=== PATIENT | female | born 1960 | race African-American/Black ===

== ENCOUNTER 2017-05-16 11:04 | Observation (INO) | payer OTHER ==
[2017-05-16 11:32] VITALS: BMI 25.5
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
[2017-05-16 13:41] LABS: BASOPHIL 0.3 % (0-2.0); EOSINOPHIL 0.8 % (0-4.5); MCH 25.1 pg (25.7-33.7); MCHC 33.2 g/dl (32.0-36.0); MEAN CELL VOLUME 75.8 fl (80-96); MEAN PLT VOLUME 8.1 fl (7.5-11.1); NEUTROPHILS 80.3 % (42.8-82.8); PLATELET COUNT 216 K/MM3 (134-434); RDW 14.1 % (11.6-15.6); WHITE BLOOD COUNT 9.3 K/mm3 (4.0-10.0)
[2017-05-16 14:11] LABS: ALBUMIN 3.2 g/dl (3.4-5.0); ANION GAP 10 (8-16); CALCIUM 8.9 mg/dL (8.5-10.1); CO2 24 mmol/L (21-32); CREATININE 1.8 mg/dL (0.55-1.02); GLUCOSE,RANDOM 95 mg/dL (74-106); MAGNESIUM 2.6 mg/dL (1.8-2.4); SGOT/AST 34 U/L (15-37); TOT PROT 7.2 g/dl (6.4-8.2)
[2017-05-16 14:14] LABS: ALK PHOS 102 U/L (45-117); SGPT/ALT 22 U/L (12-78)
[2017-05-16 14:15] LABS: TROPONIN I < 0.02 ng/ml (0.00-0.05)
[2017-05-16 14:36] LABS: PLATELET ESTIMATE ADEQUATE (NORMAL)
--- NOTE | 2017-05-16 14:36 | EKG ---
Test Reason : Blood Pressure : / mmHG Vent. Rate : 075 BPM Atrial Rate : 075 BPM P-R Int : 154 ms QRS Dur : 082 ms QT Int : 360 ms P-R-T Axes : 064 050 043 degrees QTc Int : 402 ms NORMAL SINUS RHYTHM MINIMAL VOLTAGE CRITERIA FOR LVH, MAY BE NORMAL VARIANT BORDERLINE ECG WHEN COMPARED WITH ECG OF 22-SEP-2015 02:28, NO SIGNIFICANT CHANGE WAS FOUND Confirmed by SOFIYA CAMEJO MD ([id number]) on 05/16/2017 2:36:13 PM Referred By: Confirmed By:SOFIYA CAMEJO MD
[2017-05-16] MEDS ORDERED: SODIUM CHLORIDE 0.9% 500 ML INFUS.BAG IV ONE (15:32)
[2017-05-16 16:12] LABS: URINE APPEARANCE TURBID; URINE BILIRUBIN NEGATIVE (NEGATIVE); URINE BLOOD 1+ (NEGATIVE); URINE COLOR AMBER; URINE GLUCOSE (UA) NEGATIVE (NEGATIVE); URINE KETONE NEGATIVE (NEGATIVE); URINE NITRITE POSITIVE (NEGATIVE); URINE UROBILINOGEN 4.0 E.U/dl mg/dL (0.2-1.0)
[2017-05-16 16:14] LABS: URINE LEUK ESTERASE 3+ (NEGATIVE); URINE PROTEIN 2+ (NEGATIVE)
[2017-05-16 16:17] LABS: URINE BACTERIA MANY /hpf (NONE SEEN); URINE RBC 2 /hpf (0-3); URINE WBC 1376 /hpf (3-5)
[2017-05-16 16:27] LABS: URINE MARIJUANA THC NEGATIVE ng/ml (CUTOFF=50)
[2017-05-16] MEDS ORDERED: SODIUM CHLORIDE 1,000 ML IV STA (18:41)
--- NOTE | 2017-05-16 19:33 | PN ---
Teaching Attending Note Name of Resident: Avni Samuels ATTENDING PHYSICIAN STATEMENT I saw and evaluated the patient. I reviewed the resident's note and discussed the case with the resident. I agree with the resident's findings and plan as documented. SUBJECTIVE: CC: N/V/D/Abd pain HPI : for 6 days , has been having abd pain, N/V /Diarrhea ( watery , non bloody ). diarrhea stopped 2 days ago. poor po tolerance . did not take meds except for methadone. denies active drug abuse ( although U tox positive for cocaine ) . she wast at methadone clinic today and had near syncopal episode. reprots fever of 101 at home. no sick contact OBJECTIVE: NAD , AAOx3 . drinking orange juice HEENT: no facial droop. dry MM. oropharynx with no erythema or exudate . no LAP in neck . CV: RRR. Lungs: CTAB. Abd: soft, distended, TTP all over especially in upper part. tympanic abd . EXt: no edema Neuro : EOMI, no facial droop, round reactive pupils, nl facial sensation. strength 5/5 in upper ext proximally and distally. LE strength 3/5 at hip flexion , 5/5 at knee flexion and extension and dorsiflexion and plantar flexion . 1+knee jerk and biceps b/l ASSESSMENT AND PLAN: 56 y/o lady with h/o Asthma, polysubstance abuse, mood disorder and seizure DO , who presented with N/V/D 1- N/V/D : could be due to viral gastroenteritis, Flu , UTI. with abd distention need to r/o ileus , or partial SBO. - check KUB - treat UTI - check Flu swab - check Stool cx and c diff - IVF . - zofran - full liquids - check Lipase 2- UTI : - start ceftriaxone - follwo cx 3- SINTIA: likely prerenal. - IVF 4- near syncope : likely orthostatic hypotension . - check orthostatic VS - IVF - EKG reviewed. 5- H/o Seizure , will confirm meds and place on her meds 6- h/o polysubstance abuse : cont methadone. will confirm dose in am 7- DVT px : heparin SQ
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
[2017-05-16] MEDS ORDERED: ONDANSETRON 4 MG/2 ML VIAL IVPB PRN (20:13)
[2017-05-16] MEDS ORDERED: GABAPENTIN 300 MG CAPSULE (FP) PO SCH (20:15)
[2017-05-16] MEDS ORDERED: GABAPENTIN 100 MG CAPSULE (FP) PO PRN (20:39)
[2017-05-16] MEDS ORDERED: DEXTROSE 5%-WATER - 50 ML IVPB ONE (21:05)
[2017-05-16] MEDS ORDERED: cefTRIAXone SODIUM 1 GM VIAL ONE (21:05)
[2017-05-16] MEDS: CEFTRIAXONE 1 GM in DEXTROSE 5%-WATER - 50 ML IVPB SCH (21:30)
[2017-05-16] MEDS: LITHIUM CARBONATE 300 MG CAPSULE (FP) PO SCH (21:42)
[2017-05-16] MEDS: HEPARIN NA (PORCINE) 5,000 UNITS/ML 1ML VIAL SQ SCH (21:42)
[2017-05-16] MEDS: QUEtiapine FUMARATE 200 MG TABLET PO SCH (21:43)
[2017-05-16] MEDS: PHENYTOIN NA EXTENDED 100 MG CAPSULE (FP) PO SCH (21:43)
[2017-05-16] MEDS: PHENobarbital 30 MG TABLET PO SCH (21:43)
[2017-05-16] MEDS: SODIUM CHLORIDE 1,000 ML IV SCH (21:44)
[2017-05-16] MEDS ORDERED: HEPARIN NA (PORCINE) 5,000 UNITS/ML 1ML VIAL SQ SCH (22:00)
[2017-05-17] MEDS: PHENYTOIN NA EXTENDED 100 MG CAPSULE (FP) PO SCH ×3 (06:24→22:06)
[2017-05-17] MEDS: LITHIUM CARBONATE 300 MG CAPSULE (FP) PO SCH ×3 (06:24→22:07)
[2017-05-17] MEDS: HEPARIN NA (PORCINE) 5,000 UNITS/ML 1ML VIAL SQ SCH ×3 (06:24→22:05)
[2017-05-17] MEDS: QUEtiapine FUMARATE 200 MG TABLET PO SCH ×2 (06:25→22:06)
[2017-05-17] MEDS: PHENobarbital 30 MG TABLET PO SCH ×3 (06:25→22:05)
[2017-05-17 07:26] LABS: BASOPHIL 0.4 % (0-2.0); EOSINOPHIL 1.1 % (0-4.5); MCH 25.2 pg (25.7-33.7); MEAN CELL VOLUME 76.6 fl (80-96); MEAN PLT VOLUME 8.4 fl (7.5-11.1); NEUTROPHILS 70.3 % (42.8-82.8); PLATELET COUNT 241 K/MM3 (134-434); WHITE BLOOD COUNT 8.3 K/mm3 (4.0-10.0)
[2017-05-17 08:12] LABS: ALBUMIN 3.1 g/dl (3.4-5.0); ALK PHOS 99 U/L (45-117); ANION GAP 10 (8-16); CALCIUM 9.1 mg/dL (8.5-10.1); CO2 23 mmol/L (21-32); CREATININE 1.4 mg/dL (0.55-1.02); GLUCOSE,RANDOM 100 mg/dL (74-106); MAGNESIUM 2.5 mg/dL (1.8-2.4); SGOT/AST 39 U/L (15-37); SGPT/ALT 23 U/L (12-78); TOT PROT 7.1 g/dl (6.4-8.2)
[2017-05-17] MEDS ORDERED: cefTRIAXone SODIUM 1 GM VIAL ONE (08:42)
[2017-05-17] MEDS ORDERED: DEXTROSE 5%-WATER - 50 ML IVPB ONE (08:43)
[2017-05-17] MEDS ORDERED: METHADONE HCL 40 MG DISPERSABLE TABLET ONE (09:34)
[2017-05-17] MEDS ORDERED: METHADONE HCL 10 MG TABLET ONE (09:34)
[2017-05-17] MEDS ORDERED: METHADONE HCL 10 MG TABLET PO SCH (10:00)
[2017-05-17] MEDS: METHADONE 120 MG, METHADONE 10 MG PO SCH (10:25)
[2017-05-17] MEDS: CEFTRIAXONE 1 GM in DEXTROSE 5%-WATER - 50 ML IVPB SCH (10:25)
[2017-05-17] MEDS ORDERED: SODIUM PHOSPHATE - 30 MM in SODIUM CHLORIDE 250 ML IVPB ONE (12:00)
[2017-05-17] MEDS ORDERED: PT OWN MED DRAWER 7, Y5N ONE ×2 (14:10→21:43)
[2017-05-17] MEDS: NAPH,MB-DB/K PH,MBDB POWDER PACKET PO SCH ×2 (14:29→22:07)
--- NOTE | 2017-05-17 18:38 | PN ---
Teaching Attending Note Name of Resident: Avni Samuels ATTENDING PHYSICIAN STATEMENT I saw and evaluated the patient. I reviewed the resident's note and discussed the case with the resident. I agree with the resident's findings and plan as documented. SUBJECTIVE: no fever or chills . feels better OBJECTIVE: NAD , AAOx3 . HEENT: no facial droop. MMM CV: RRR. Lungs: CTAB. Abd: soft, Not distended today . no TTP EXt: no edema ASSESSMENT AND PLAN: 56 y/o lady with h/o Asthma, polysubstance abuse, mood disorder and seizure DO , who presented with N/V/D 1- N/V/D : could be due to viral gastroenteritis, or due to the UTI ABd distention has resolved on exam, tolerated her diet - treat UTI - Flu swab neg - c diff if diarrhea recurs - IVF . - zofran - upgrade to regular diet 2- UTI : - cont ceftriaxone - follow Ucx 3- SINTIA: likely prerenal. improved - cont IVF 4- Near syncope : likely orthostatic hypotension . - orthostatic VS this am after IVF with no drop - IVF 5- H/o Seizure , COnt meds 6- h/o polysubstance abuse : cont methadone. 7- DVT px : heparin SQ
--- NOTE | 2017-05-17 18:47 | PN ---
Physical Exam: SUBJECTIVE: Patient seen and examined. Says she feels just as bad as yesterday but she denies nausea, vomiting, and diarrhea today. She also says her abdominal pain subsided. OBJECTIVE: Vital Signs Period Temp Pulse Resp BP Sys/Galan Pulse Ox Last 24 Hr 97.7 F-98.6 F 78-96 18-19 98-117/60-79 96-98 GENERAL: A/O x 3, NAD HEAD: Normal with no signs of trauma. EYES: Pupils equal, round and reactive to light, extraocular movements intact, sclera anicteric, conjunctiva clear. No lid lag. EARS, NOSE, THROAT: oropharynx clear without exudates. Dry mucous membranes NECK: supple without lymphadenopathy, JVD, or masses. LUNGS: Wheezing B/L bases , and no crackles. No accessory muscle use. HEART: Regular rate and rhythm, normal S1 and S2 without murmur, rub or gallop. ABDOMEN: soft, distended (much less than yesterday), nontender MUSCULOSKELETAL: Normal range of motion at all joints. No bony deformities or tenderness. No CVA tenderness. UPPER EXTREMITIES: 2+ pulses, warm, well-perfused. No cyanosis. No clubbing. No peripheral edema. LOWER EXTREMITIES: 2+ pulses, warm, well-perfused. No calf tenderness. No peripheral edema. PSYCHIATRIC: Cooperative. Good eye contact. Appropriate mood and affect. SKIN: Warm, dry, normal turgor, no rashes or lesions noted, normal capillary refill. Laboratory Results - last 24 hr 05/16/17 05/17/17 05/17/17 21:14 05:35 05:35 WBC 8.3 RBC 3.92 Hgb 9.9 L Hct 30.0 L MCV 76.6 L MCH 25.2 L MCHC 33.0 RDW 14.0 Plt Count 241 MPV 8.4 Neutrophils % 70.3 Lymphocytes % 14.0 D Monocytes % 14.2 H Eosinophils % 1.1 Basophils % 0.4 Sodium 139 Potassium 4.4 Chloride 106 Carbon Dioxide 23 Anion Gap 10 BUN 26 H D Creatinine 1.4 H D Creat Clearance w eGFR 38.76 Random Glucose 100 Calcium 9.1 Phosphorus 2.0 L Magnesium 2.5 H Total Bilirubin 1.0 AST 39 H ALT 23 Alkaline Phosphatase 99 Total Protein 7.1 Albumin 3.1 L Lipase 239 144 05/17/17 05:35 WBC RBC Hgb Hct MCV MCH MCHC RDW Plt Count MPV Neutrophils % Lymphocytes % Monocytes % Eosinophils % Basophils % Sodium Potassium Chloride Carbon Dioxide Anion Gap BUN Creatinine Creat Clearance w eGFR Random Glucose Calcium Phosphorus Magnesium Total Bilirubin AST ALT Alkaline Phosphatase Total Protein Albumin Lipase Cancelled Active Medications Generic Name Dose Route Start Last Admin Trade Name Freq PRN Reason Stop Dose Admin Gabapentin 100 mg 05/16/17 20:39 05/16/17 21:43 Neurontin - PO 100 mg Q8H PRN Administration Heparin Sodium (Porcine) 5,000 unit 05/16/17 22:00 05/17/17 14:29 Heparin - SQ Not Given TID TRAVIS Ceftriaxone Sodium 1 gm/ 50 mls @ 100 mls/hr 05/16/17 20:15 05/17/17 10:25 Dextrose IVPB 100 mls/hr DAILY TRAVIS Administration Sodium Chloride 1,000 mls @ 100 mls/hr 05/16/17 20:30 05/16/17 21:44 Normal Saline - IV 100 mls/hr ASDIR TRAVIS Administration [place] Carbonate 300 mg 05/16/17 22:00 05/17/17 14:28 Eskalith - PO 300 mg TID TRAVIS Administration Methadone HCl 120 mg/ 130 mg 05/17/17 10:00 05/17/17 10:25 Methadone HCl 10 mg PO 130 mg DAILY TRAVIS Administration Ondansetron HCl 4 mg 05/16/17 20:13 Zofran Injection IVPB Q6H PRN NAUSEA Phenobarbital 30 mg 05/16/17 22:00 05/17/17 14:28 Phenobarbital - PO 30 mg TID TRAVIS Administration Phenytoin Sodium 100 mg 05/16/17 22:00 05/17/17 14:28 Dilantin - PO 100 mg TID TRAVIS Administration Potassium Phos/Sodium Phos 1 packet 05/17/17 14:00 05/17/17 14:29 Phos-Nak Packet - PO 1 packet TID TRAVIS Administration Quetiapine Fumarate 200 mg 05/16/17 22:00 05/16/17 21:43 Seroquel - PO 200 mg HS TRAVIS Administration Quetiapine Fumarate 200 mg 05/17/17 07:00 05/17/17 06:25 Seroquel - PO 200 mg AM TRAVIS Administration ASSESSMENT/PLAN: Patient is a 56 y/o female with a past medical history of seizure disorder, mood disorder, COPD, and polysubstance abuse was admitted because of nausea, vomiting, diarrhea and abdominal pain. #Nausea, vomiting, and watery diarrhea and abdominal distention possibly due to Gastroenteritis vs. UTI -f/u urine cultures -continue IV antibiotics (day 2): Ceftriaxone -diarrhea and abdominal distention resolved -continue zofran -continue IV fluids NS 100cc/hour -Start regular diet #UTI -urine wbc 1300 -f/u urine cultures -continue ceftriaxone 1gm #SINTIA likely prerenal -improving, 1.4 creatitine (yesterday 1.8) -poor oral intake and dehydration -continue IV fluids NS 100cc/hour -will monitor #Near syncopal episode likely due dehydration -orthostatic vital signs WNL -EKG reviewed -continue IV fluids. #Hx of Seizures -continue phenobarbital 30mg TID -continue Dilantin 100mg TID #Hx of Polysubstance abuse -continue methadone 130mg #DVT PPX: Heparin SQ 5000U Visit type - Emergency Visit Emergency Visit: Yes ED Registration Date: 05/16/17 Care time: The patient presented to the Emergency Department on the above date and was hospitalized for further evaluation of their emergent condition. - New Patient This patient is new to me today: No - Critical Care Critical Care patient: No
[2017-05-17] MEDS: SODIUM CHLORIDE 1,000 ML IV SCH (22:06)
[2017-05-18] MEDS: PHENobarbital 30 MG TABLET PO SCH ×3 (05:46→21:19)
[2017-05-18] MEDS: HEPARIN NA (PORCINE) 5,000 UNITS/ML 1ML VIAL SQ SCH ×3 (05:46→21:20)
[2017-05-18] MEDS: NAPH,MB-DB/K PH,MBDB POWDER PACKET PO SCH ×4 (05:46→21:24)
[2017-05-18] MEDS: PHENYTOIN NA EXTENDED 100 MG CAPSULE (FP) PO SCH ×3 (05:47→21:20)
[2017-05-18] MEDS: LITHIUM CARBONATE 300 MG CAPSULE (FP) PO SCH ×3 (05:47→21:20)
[2017-05-18] MEDS: QUEtiapine FUMARATE 200 MG TABLET PO SCH ×2 (06:05→21:20)
[2017-05-18] MEDS ORDERED: METHADONE HCL 10 MG TABLET ONE (08:27)
[2017-05-18] MEDS ORDERED: METHADONE HCL 40 MG DISPERSABLE TABLET ONE (08:28)
[2017-05-18] MEDS ORDERED: DEXTROSE 5%-WATER - 50 ML IVPB ONE (08:28)
[2017-05-18] MEDS ORDERED: cefTRIAXone SODIUM 1 GM VIAL ONE (08:28)
[2017-05-18] MEDS: CEFTRIAXONE 1 GM in DEXTROSE 5%-WATER - 50 ML IVPB SCH (09:01)
[2017-05-18] MEDS: METHADONE 120 MG, METHADONE 10 MG PO SCH (09:02)
[2017-05-18 09:26] LABS: HIV 1 & 2 AB NEGATIVE; HIV 1 AGp24 NEGATIVE
[2017-05-18 10:08] LABS: MCH 25.8 pg (25.7-33.7); MCHC 33.3 g/dl (32.0-36.0); MEAN CELL VOLUME 77.4 fl (80-96); MEAN PLT VOLUME 8.3 fl (7.5-11.1); PLATELET COUNT 260 K/MM3 (134-434); RDW 14.2 % (11.6-15.6); WHITE BLOOD COUNT 6.9 K/mm3 (4.0-10.0)
[2017-05-18 10:31] LABS: ANION GAP 5 (8-16); CO2 24 mmol/L (21-32); CREATININE 1.1 mg/dL (0.55-1.02); GLUCOSE,RANDOM 117 mg/dL (74-106); MAGNESIUM 2.4 mg/dL (1.8-2.4)
[2017-05-18] MEDS ORDERED: SODIUM CHLORIDE 1,000 ML IV SCH (11:07)
--- NOTE | 2017-05-18 11:59 | PN ---
Teaching Attending Note Name of Resident: Francie Canela ATTENDING PHYSICIAN STATEMENT I saw and evaluated the patient. I reviewed the resident's note and discussed the case with the resident. I agree with the resident's findings and plan as documented. SUBJECTIVE: no fever ro chills, has no ABd pain , feels better . insomnia last night OBJECTIVE: NAD , AAOx3 . HEENT: no facial droop. MMM CV: RRR. Lungs: CTAB. Abd: soft, ND. no TTP EXt: no edema ASSESSMENT AND PLAN: 56 y/o lady with h/o Asthma, polysubstance abuse, mood disorder and seizure DO , who presented with N/V/D 1- N/V/D : could be due to viral gastroenteritis, or due to the UTI ABd distention has resolved on exam - COnt to treat UTI - C diff if diarrhea recurs -Cont but decrease IVF . - zofran - Regular diet today 2- UTI : - cont ceftriaxone - follow Ucx ( lactose fermenting G-) 3- SINTIA: likely prerenal. improved - cont IVF with decreasing the rate 4- Near syncope : likely orthostatic hypotension . - IVF 5- H/o Seizure , COnt meds 6- h/o polysubstance abuse : cont methadone. 7- DVT px : heparin SQ POssible dc tomorrow . Need PT eval .
[2017-05-18] MEDS ORDERED: PT OWN MED DRAWER 7, Y5N ONE ×3 (12:58→21:12)
[2017-05-19] MEDS: NAPH,MB-DB/K PH,MBDB POWDER PACKET PO SCH ×2 (06:17→13:23)
[2017-05-19] MEDS: HEPARIN NA (PORCINE) 5,000 UNITS/ML 1ML VIAL SQ SCH ×2 (06:37→13:23)
[2017-05-19] MEDS: LITHIUM CARBONATE 300 MG CAPSULE (FP) PO SCH ×2 (06:37→13:23)
[2017-05-19] MEDS: PHENobarbital 30 MG TABLET PO SCH ×2 (06:37→13:23)
[2017-05-19] MEDS: QUEtiapine FUMARATE 200 MG TABLET PO SCH (06:37)
[2017-05-19] MEDS: PHENYTOIN NA EXTENDED 100 MG CAPSULE (FP) PO SCH ×2 (06:37→13:23)
--- NOTE | 2017-05-19 07:05 | PN ---
Physical Exam: SUBJECTIVE: Patient seen and examined No new c/o OBJECTIVE: Vital Signs Period Temp Pulse Resp BP Sys/Galan Pulse Ox Last 24 Hr 97.5 F-99.8 F 61-93 18-20 94-120/51-78 96-96 GENERAL: The patient is awake, alert, and fully oriented, in no acute distress. HEAD: Normal with no signs of trauma. EYES: PERRL, extraocular movements intact, sclera anicteric, conjunctiva clear. No ptosis. ENT: Ears normal, nares patent, oropharynx clear without exudates, moist mucous membranes. NECK: Trachea midline, full range of motion, supple. LUNGS: Breath sounds equal, clear to auscultation bilaterally, no wheezes, no crackles, no accessory muscle use. HEART: Regular rate and rhythm, S1, S2 without murmur, rub or gallop. ABDOMEN: Soft, nontender, nondistended, normoactive bowel sounds, no guarding, no rebound, no hepatosplenomegaly, no masses. EXTREMITIES: 2+ pulses, warm, well-perfused, no edema. NEUROLOGICAL: Cranial nerves II through XII grossly intact. Normal speech, gait not observed. PSYCH: Normal mood, normal affect. SKIN: Warm, dry, normal turgor, no rashes or lesions noted Laboratory Results - last 24 hr 05/18/17 05/18/17 09:45 09:45 WBC 6.9 RBC 3.62 Hgb 9.3 L Hct 28.0 L MCV 77.4 L MCH 25.8 MCHC 33.3 RDW 14.2 Plt Count 260 MPV 8.3 Sodium 139 Potassium 4.4 Chloride 110 H Carbon Dioxide 24 Anion Gap 5 L BUN 15 D Creatinine 1.1 H D Random Glucose 117 H Calcium 9.0 Phosphorus 3.0 D Magnesium 2.4 Active Medications Generic Name Dose Route Start Last Admin Trade Name Freq PRN Reason Stop Dose Admin Gabapentin 100 mg 05/16/17 20:39 05/16/17 21:43 Neurontin - PO 100 mg Q8H PRN Administration Heparin Sodium (Porcine) 5,000 unit 05/16/17 22:00 05/19/17 06:37 Heparin - SQ 5,000 unit TID TRAVIS Administration Ceftriaxone Sodium 1 gm/ 50 mls @ 100 mls/hr 05/16/17 20:15 05/18/17 09:01 Dextrose IVPB 100 mls/hr DAILY TRAVIS Administration Sodium Chloride 1,000 mls @ 75 mls/hr 05/18/17 11:07 05/18/17 13:12 Normal Saline - IV 75 mls/hr ASDIR TRAVIS Administration [place] Carbonate 300 mg 05/16/17 22:00 05/19/17 06:37 Eskalith - PO 300 mg TID TRAVIS Administration Methadone HCl 120 mg/ 130 mg 05/17/17 10:00 05/18/17 09:02 Methadone HCl 10 mg PO 130 mg DAILY TRAVIS Administration Ondansetron HCl 4 mg 05/16/17 20:13 Zofran Injection IVPB Q6H PRN NAUSEA Phenobarbital 30 mg 05/16/17 22:00 05/19/17 06:37 Phenobarbital - PO 30 mg TID TRAVIS Administration Phenytoin Sodium 100 mg 05/16/17 22:00 05/19/17 06:37 Dilantin - PO 100 mg TID TRAVIS Administration Potassium Phos/Sodium Phos 1 packet 05/17/17 14:00 05/19/17 06:17 Phos-Nak Packet - PO Not Given TID TRAVIS Quetiapine Fumarate 200 mg 05/16/17 22:00 05/18/17 21:20 Seroquel - PO 200 mg HS TRAVIS Administration Quetiapine Fumarate 200 mg 05/17/17 07:00 05/19/17 06:37 Seroquel - PO 200 mg AM TRAVIS Administration ASSESSMENT/PLAN: Patient is a 56 y/o female with a past medical history of seizure disorder, mood disorder, COPD, and polysubstance abuse was admitted because of nausea, vomiting, diarrhea and abdominal pain. #Nausea, vomiting, and watery diarrhea secondary to UTI G-ve lactose fermenting organism --continue IV antibiotics - Ceftriaxone -diarrhea and abdominal distention resolved -continue zofran -continue IV fluids NS reduce to 75cc/hour -Start regular diet #UTI -urine wbc 1300 -G-ve lactose fermenting organism -continue ceftriaxone 1gm #SINTIA likely prerenal -improving, 1.1creatitine (yesterday 1.4) -poor oral intake and dehydration -continue IV fluids NS reduce to 75cc/hour -will monitor #Near syncopal episode likely due dehydration -orthostatic vital signs WNL -EKG reviewed -continue IV fluids. #Hx of Seizures -continue phenobarbital 30mg TID -continue Dilantin 100mg TID #Hx of Polysubstance abuse -continue methadone 130mg #PT evaluation Uses walker at home #Electrolyte imbalance Replete as needed #DVT PPX: Heparin SQ 5000U #Dispo For likely discharge Visit type - Emergency Visit Emergency Visit: Yes ED Registration Date: 05/16/17 Care time: The patient presented to the Emergency Department on the above date and was hospitalized for further evaluation of their emergent condition. - New Patient This patient is new to me today: Yes Date on this admission: 05/19/17 - Critical Care Critical Care patient: No - Discharge Referral Referred to [facility] No
--- NOTE | 2017-05-19 08:00 | DS ---
Physical Exam: SUBJECTIVE: Patient seen and examined OBJECTIVE: Vital Signs Period Temp Pulse Resp BP Sys/Galan Pulse Ox Last 24 Hr 97.5 F-99.8 F 61-93 18-20 94-120/51-78 96-96 PHYSICAL EXAM GENERAL: The patient is awake, alert, and fully oriented, in no acute distress. HEAD: Normal with no signs of trauma. EYES: PERRL, extraocular movements intact, sclera anicteric, conjunctiva clear. ENT: Ears normal, nares patent, oropharynx clear without exudates, moist mucous membranes. NECK: Trachea midline, full range of motion, supple. LUNGS: Breath sounds equal, clear to auscultation bilaterally, no wheezes, no crackles, no accessory muscle use. HEART: Regular rate and rhythm, S1, S2 without murmur, rub or gallop. ABDOMEN: Soft, nontender, nondistended, normoactive bowel sounds, no guarding, no rebound, no hepatosplenomegaly, no masses. EXTREMITIES: 2+ pulses, warm, well-perfused, no edema. NEUROLOGICAL: Cranial nerves II through XII grossly intact. Normal speech, gait not observed. PSYCH: Normal mood, normal affect. SKIN: Warm, dry, normal turgor, no rashes or lesions noted. LABS Laboratory Results - last 24 hr 05/18/17 05/18/17 09:45 09:45 WBC 6.9 RBC 3.62 Hgb 9.3 L Hct 28.0 L MCV 77.4 L MCH 25.8 MCHC 33.3 RDW 14.2 Plt Count 260 MPV 8.3 Sodium 139 Potassium 4.4 Chloride 110 H Carbon Dioxide 24 Anion Gap 5 L BUN 15 D Creatinine 1.1 H D Random Glucose 117 H Calcium 9.0 Phosphorus 3.0 D Magnesium 2.4 HOSPITAL COURSE: Date of Admission:05/16/17 Date of Discharge: 05/19/17 Discharge Summary Reason For Visit: DEHYDRATION Current Active Problems Syncope and collapse (Acute) Condition: Stable - Home Medications Comprehensive Discharge Medication List: Ambulatory Orders [place] Carbonate [Eskalith -] 300 mg PO TID 09/03/15 Albuterol Sulfate Inhaler - [Ventolin HFA Inhaler -] 2 inh IH Q4H PRN #1 inhaler 09/14/15 Tiotropium Mark [Spiriva Respimat] 4 gm IH DAILY #1 mist.inhal 09/14/15 Gabapentin [Neurontin -] 800 mg PO PRN 05/16/17 Methadone [Dolophine -] 130 mg PO DAILY 05/16/17 Phenobarbital - 30 mg PO TID 05/16/17 Phenytoin Na Extended [Dilantin -] 100 mg PO TID 05/16/17 Quetiapine Fumarate [Seroquel -] 200 mg PO AM 05/16/17 Quetiapine Fumarate [Seroquel -] 400 mg PO HS 05/16/17 - Discharge Referral Referred to [facility] No
[2017-05-19] MEDS ORDERED: METHADONE HCL 10 MG TABLET ONE (08:40)
[2017-05-19] MEDS ORDERED: METHADONE HCL 40 MG DISPERSABLE TABLET ONE (08:40)
[2017-05-19] MEDS ORDERED: cefTRIAXone SODIUM 1 GM VIAL ONE (08:40)
[2017-05-19] MEDS ORDERED: DEXTROSE 5%-WATER - 50 ML IVPB ONE (08:40)
[2017-05-19] MEDS: METHADONE 120 MG, METHADONE 10 MG PO SCH (09:01)
[2017-05-19] MEDS: CEFTRIAXONE 1 GM in DEXTROSE 5%-WATER - 50 ML IVPB SCH (09:20)
[2017-05-19] MEDS ORDERED: PT OWN MED DRAWER 7, Y5N ONE (13:22)
[2017-05-19 16:09] VITALS: BP 110/70; PULSE 73; TEMP 98.3
== END 2017-05-19 19:21 | disposition home or self-care (01) ==
LOC: JER 11:04 → UNDOADMOB 15:49 → INTOOBSV 15:49 → JERBED 15:49 → J4W 18:32 → OBSVTOIN 18:42 → INTOOBSV 18:42 → J4W 05-17 10:48 → JERBED 05-17 10:48 → UNDODISOB 05-19 19:21
PROVIDERS: ADMIT Internal Medicine; ATTEND Nurse Practitioner Acute Care
PROC: 3E0337Z Introduction of Electrolytic and Water Balance Substance into Peripheral Vein, Percutaneous Approach (ICD-10-PCS; principal; 2017-05-17)
DX: E86.0 Dehydration (principal); R55 Syncope and collapse; G40.909 Epilepsy, unspecified, not intractable, without status epilepticus; F11.20 Opioid dependence, uncomplicated; F19.10 Other psychoactive substance abuse, uncomplicated; F39 Unspecified mood [affective] disorder; J44.9 Chronic obstructive pulmonary disease, unspecified; Z87.891 Personal history of nicotine dependence; Z88.6 Allergy status to analgesic agent; N39.0 Urinary tract infection, site not specified; R11.2 Nausea with vomiting, unspecified; N17.9 Acute kidney failure, unspecified; R19.7 Diarrhea, unspecified
CPT/HCPCS: 36415; 71020-TC; 74000-TC; 80048; 80053; 80185; 80307; 81003; 81015; 83605; 83690; 83735; 83880; 84100; 84484; 85025; 85027; 87086; 87186; 87389; 87804; 93005; 93010; 97116-GP; 99282-25; G0378; J1644

== ENCOUNTER 2021-07-18 15:48 | Inpatient (IN) | payer OTHER ==
[2021-07-18] MEDS: SODIUM CHLORIDE 1,000 ML IV SCH (17:00)
[2021-07-18 17:02] LABS: BASO % 0.5 % (0-2.0); EOS % 1.3 % (0-4.5); HEMOGLOBIN 10.4 GM/dL (10.7-15.3); LYMPH % 39.6 % (8-40); MCH 27.2 pg (25.7-33.7); MCHC 33.4 g/dl (32.0-36.0); MEAN CELL VOLUME 81.4 fl (80-96); MEAN PLT VOLUME 7.4 fl (7.5-11.1); MONO % 8.3 % (3.8-10.2); NEUT % 50.3 % (42.8-82.8); PLATELET COUNT 232 10^3/uL (134-434); RBC 3.81 M/mm3 (3.60-5.2); RDW 14.4 % (11.6-15.6)
[2021-07-18 17:09] LABS: INR 1.08 (0.83-1.09); PROTHROMBIN TIME (PATIENT) 12.1 SEC (9.7-13.0)
[2021-07-18 17:11] LABS: ACTIVATED PTT 27.7 SECONDS (25.2-36.5)
[2021-07-18 18:16] LABS: ALBUMIN 3.8 g/dl (3.4-5.0); ALK PHOS 81 U/L (45-117); ANION GAP 3 MMOL/L (8-16); BILIRUBIN,TOTAL 0.6 mg/dL (0.2-1); BLOOD UREA NITROGEN 15.6 mg/dL (7-18); CALCIUM 9.2 mg/dL (8.5-10.1); CHLORIDE 109 mmol/L (98-107); CHOLESTEROL 167 mg/dL (50-200); CO2 29 mmol/L (21-32); CREATININE 1.7 mg/dL (0.55-1.3); GLUCOSE,RANDOM 90 mg/dL (74-106); HDL CHOLESTEROL 66 mg/dL (40-60); LDL CHOLESTEROL (ONLY SJRH) 86 mg/dL (5-100); SGOT/AST 17 U/L (15-37); SGPT/ALT 12 U/L (13-61); SODIUM 140 mmol/L (136-145); TOT PROT 7.2 g/dl (6.4-8.2); TRIGLYCERIDES 67 mg/dL (0-150)
[2021-07-18 21:32] LABS: EPI CELLS 10 /uL (0-25.1); HYALINE CASTS 3 /uL (0-3.1); PH,URINE 8.5 (5.0-8.0); URINE APPEARANCE CLOUDY; URINE BACTERIA 38 /uL (0-1359); URINE BILIRUBIN NEGATIVE (NEGATIVE); URINE COLOR YELLOW; URINE GLUCOSE (UA) NEGATIVE (NEGATIVE); URINE KETONE NEGATIVE (NEGATIVE); URINE LEUK ESTERASE 2+ (NEGATIVE); URINE NITRITE NEGATIVE (NEGATIVE); URINE PROTEIN 1+ (NEGATIVE); URINE RBC 172 /uL (0-23.9); URINE WBC 741 /uL (0-25.8)
[2021-07-18] MEDS ORDERED: ASPIRIN COATED 81 MG TABLET.EC PO ONE (21:57)
[2021-07-18 22:08] LABS: COCAINE, UR POSITIVE (NEGATIVE); METHADONE, UR POSITIVE (NEGATIVE); OPIATES, URI POSITIVE (NEGATIVE); PHENCYCLIDINE,URINE NEGATIVE (NEGATIVE); URINE AMPHETAMINES NEGATIVE (NEGATIVE); URINE BARBITURATES NEGATIVE (NEGATIVE); URINE BENZODIAZEPINES POSITIVE (NEGATIVE)
[2021-07-18] MEDS ORDERED: GABAPENTIN 300 MG CAPSULE PO PRN (22:12)
[2021-07-18] MEDS ORDERED: TIOTROPIUM BROMIDE 2.5 MCG (SPIRIVA) RESPIMAT INHALER IH PRN (22:12)
[2021-07-18] MEDS ORDERED: ALBUTEROL SO4 HFA INHALER IH PRN (22:12)
[2021-07-18] MEDS: PHENYTOIN NA EXTENDED 100 MG CAPSULE (FP) PO SCH (22:42)
[2021-07-18] MEDS: PHENobarbital 30 MG TABLET PO SCH (22:44)
[2021-07-18] MEDS: LITHIUM CARBONATE 300 MG CAPSULE PO SCH (22:44)
[2021-07-18] MEDS: HEPARIN NA (PORCINE) 5,000 UNITS/ML 1ML VIAL SQ SCH (22:45)
[2021-07-18 23:34] VITALS: BMI 24.6
[2021-07-19] MEDS: PHENobarbital 30 MG TABLET PO SCH ×3 (05:54→21:14)
[2021-07-19] MEDS: HEPARIN NA (PORCINE) 5,000 UNITS/ML 1ML VIAL SQ SCH ×3 (05:54→21:14)
[2021-07-19] MEDS: PHENYTOIN NA EXTENDED 100 MG CAPSULE (FP) PO SCH ×3 (05:54→21:13)
[2021-07-19] MEDS: QUEtiapine FUMARATE 50 MG TABLET PO SCH (06:13)
[2021-07-19] MEDS ORDERED: cefTRIAXone SODIUM 1 GM VIAL ONE (09:43)
[2021-07-19] MEDS ORDERED: DEXTROSE 5%-WATER - 50 ML IVPB ONE (09:44)
[2021-07-19] MEDS ORDERED: methaDONE HCL 10 MG TABLET PO SCH (10:00)
[2021-07-19] MEDS ORDERED: methaDONE HCL 10 MG TABLET ONE (11:10)
[2021-07-19] MEDS ORDERED: methaDONE HCL 40 MG DISPERSABLE TABLET ONE (11:10)
[2021-07-19] MEDS: TIOTROPIUM BROMIDE 2.5 MCG (SPIRIVA) RESPIMAT INHALER IH SCH (11:14)
[2021-07-19] MEDS: ASPIRIN COATED 81 MG TABLET.EC PO SCH (11:14)
[2021-07-19] MEDS: CEFTRIAXONE 1 GM in DEXTROSE 5%-WATER - 50 ML IVPB SCH (11:15)
[2021-07-19] MEDS: SODIUM CHLORIDE 1,000 ML IV SCH (18:08)
[2021-07-19] MEDS ORDERED: PT OWN MED DRAWER 7, Y5N ONE (21:10)
[2021-07-19] MEDS: ATORVASTATIN CA 80 MG TABLET (FP) PO SCH (21:14)
[2021-07-20] MEDS: HEPARIN NA (PORCINE) 5,000 UNITS/ML 1ML VIAL SQ SCH ×3 (05:16→22:51)
[2021-07-20] MEDS: LITHIUM CARBONATE 300 MG CAPSULE PO SCH ×3 (05:16→22:50)
[2021-07-20] MEDS: SODIUM CHLORIDE 1,000 ML IV SCH ×2 (05:30→22:49)
[2021-07-20] MEDS: QUEtiapine FUMARATE 50 MG TABLET PO SCH (06:19)
[2021-07-20 08:36] LABS: HEMATOCRIT 29.3 % (32.4-45.2); HEMOGLOBIN 9.8 GM/dL (10.7-15.3); MCH 27.3 pg (25.7-33.7); MCHC 33.3 g/dl (32.0-36.0); MEAN CELL VOLUME 81.9 fl (80-96); MEAN PLT VOLUME 7.9 fl (7.5-11.1); PLATELET COUNT 211 10^3/uL (134-434); RBC 3.58 M/mm3 (3.60-5.2); RDW 14.4 % (11.6-15.6); WHITE BLOOD COUNT 5.1 K/mm3 (4.0-10.0)
[2021-07-20] MEDS ORDERED: methaDONE HCL 10 MG TABLET ONE (09:18)
[2021-07-20] MEDS ORDERED: methaDONE HCL 40 MG DISPERSABLE TABLET ONE (09:18)
[2021-07-20] MEDS ORDERED: DEXTROSE 5%-WATER - 50 ML IVPB ONE (09:19)
[2021-07-20] MEDS ORDERED: cefTRIAXone SODIUM 1 GM VIAL ONE (09:19)
[2021-07-20] MEDS: CEFTRIAXONE 1 GM in DEXTROSE 5%-WATER - 50 ML IVPB SCH (09:44)
[2021-07-20] MEDS: TIOTROPIUM BROMIDE 2.5 MCG (SPIRIVA) RESPIMAT INHALER IH SCH (09:45)
[2021-07-20] MEDS: ASPIRIN COATED 81 MG TABLET.EC PO SCH (09:45)
[2021-07-20 09:59] LABS: CREATININE 1.3 mg/dL (0.55-1.3)
[2021-07-20 10:55] LABS: MAGNESIUM 2.1 mg/dL (1.8-2.4); PHOSPHOROUS 3.2 mg/dL (2.5-4.9)
[2021-07-20] MEDS: PHENYTOIN NA EXTENDED 100 MG CAPSULE (FP) PO SCH (22:50)
[2021-07-20] MEDS: PHENobarbital 30 MG TABLET PO SCH (22:51)
[2021-07-20] MEDS: ATORVASTATIN CA 80 MG TABLET (FP) PO SCH (22:51)
[2021-07-20] MEDS: QUEtiapine FUMARATE 200 MG TABLET PO SCH (22:52)
[2021-07-21] MEDS: HEPARIN NA (PORCINE) 5,000 UNITS/ML 1ML VIAL SQ SCH ×3 (06:30→22:06)
[2021-07-21] MEDS: LITHIUM CARBONATE 300 MG CAPSULE PO SCH ×3 (06:30→22:07)
[2021-07-21] MEDS: QUEtiapine FUMARATE 50 MG TABLET PO SCH (06:30)
[2021-07-21] MEDS ORDERED: methaDONE HCL 40 MG DISPERSABLE TABLET ONE (08:24)
[2021-07-21] MEDS ORDERED: DEXTROSE 5%-WATER - 50 ML IVPB ONE (08:25)
[2021-07-21] MEDS ORDERED: methaDONE HCL 10 MG TABLET ONE (08:25)
[2021-07-21] MEDS ORDERED: cefTRIAXone SODIUM 1 GM VIAL ONE (08:25)
[2021-07-21] MEDS: CEFTRIAXONE 1 GM in DEXTROSE 5%-WATER - 50 ML IVPB SCH (09:15)
[2021-07-21] MEDS: ASPIRIN COATED 81 MG TABLET.EC PO SCH (09:23)
[2021-07-21] MEDS: TIOTROPIUM BROMIDE 2.5 MCG (SPIRIVA) RESPIMAT INHALER IH SCH (09:26)
[2021-07-21] MEDS ORDERED: PT OWN MED DRAWER 7, Y5N ONE ×3 (10:22→22:08)
[2021-07-21] MEDS: GABAPENTIN 400 MG CAPSULE PO PRN (13:34)
[2021-07-21 13:52] LABS: EPI CELLS 21 /uL (0-25.1); HYALINE CASTS 2 /uL (0-3.1); URINE APPEARANCE CLEAR; URINE BACTERIA 3 /uL (0-1359); URINE BILIRUBIN NEGATIVE (NEGATIVE); URINE COLOR YELLOW; URINE GLUCOSE (UA) NEGATIVE (NEGATIVE); URINE KETONE NEGATIVE (NEGATIVE); URINE LEUK ESTERASE TRACE (NEGATIVE); URINE NITRITE NEGATIVE (NEGATIVE); URINE PROTEIN NEGATIVE (NEGATIVE); URINE RBC 57 /uL (0-23.9); URINE UROBILINOGEN 0.2 mg/dL (0.2-1.0); URINE WBC 54 /uL (0-25.8)
[2021-07-21] MEDS: SODIUM CHLORIDE 1,000 ML IV SCH (16:51)
[2021-07-21] MEDS: ATORVASTATIN CA 80 MG TABLET (FP) PO SCH (22:06)
[2021-07-21] MEDS: PHENYTOIN NA EXTENDED 100 MG CAPSULE (FP) PO SCH (22:06)
[2021-07-21] MEDS: PHENobarbital 30 MG TABLET PO SCH (22:06)
[2021-07-21] MEDS: QUEtiapine FUMARATE 200 MG TABLET PO SCH (22:08)
[2021-07-22] MEDS: LITHIUM CARBONATE 300 MG CAPSULE PO SCH ×3 (05:54→21:56)
[2021-07-22] MEDS: HEPARIN NA (PORCINE) 5,000 UNITS/ML 1ML VIAL SQ SCH ×3 (05:54→21:57)
[2021-07-22] MEDS: QUEtiapine FUMARATE 50 MG TABLET PO SCH (06:30)
[2021-07-22] MEDS ORDERED: methaDONE HCL 10 MG TABLET ONE (08:44)
[2021-07-22] MEDS ORDERED: methaDONE HCL 40 MG DISPERSABLE TABLET ONE (08:44)
[2021-07-22] MEDS ORDERED: DEXTROSE 5%-WATER - 50 ML IVPB ONE (08:45)
[2021-07-22] MEDS ORDERED: cefTRIAXone SODIUM 1 GM VIAL ONE (08:45)
[2021-07-22] MEDS: ASPIRIN COATED 81 MG TABLET.EC PO SCH (09:10)
[2021-07-22] MEDS: TIOTROPIUM BROMIDE 2.5 MCG (SPIRIVA) RESPIMAT INHALER IH SCH (09:18)
[2021-07-22] MEDS: GABAPENTIN 400 MG CAPSULE PO PRN (14:27)
[2021-07-22] MEDS: SODIUM CHLORIDE 1,000 ML IV SCH (17:42)
[2021-07-22] MEDS: NICOTINE 14 MG/24 HOURS TOPICAL PATCH TD SCH (17:42)
[2021-07-22 20:00] LABS: BASO % 0.5 % (0-2.0); EOS % 1.4 % (0-4.5); HEMOGLOBIN 9.6 GM/dL (10.7-15.3); LYMPH % 28.1 % (8-40); MCHC 33.1 g/dl (32.0-36.0); MEAN CELL VOLUME 81.5 fl (80-96); MONO % 8.3 % (3.8-10.2); NEUT % 61.7 % (42.8-82.8); PLATELET COUNT 199 10^3/uL (134-434); RBC 3.55 M/mm3 (3.60-5.2); RDW 14.6 % (11.6-15.6); WHITE BLOOD COUNT 8.7 K/mm3 (4.0-10.0)
[2021-07-22 20:15] LABS: CALCIUM 9.4 mg/dL (8.5-10.1)
[2021-07-22 20:16] LABS: BLOOD UREA NITROGEN 19.2 mg/dL (7-18); MAGNESIUM 2.1 mg/dL (1.8-2.4)
[2021-07-22 20:19] LABS: CREATININE 1.7 mg/dL (0.55-1.3); PHOSPHOROUS 4.5 mg/dL (2.5-4.9)
[2021-07-22 20:21] LABS: BILIRUBIN,TOTAL 0.3 mg/dL (0.2-1); TOT PROT 6.5 g/dl (6.4-8.2)
[2021-07-22] MEDS ORDERED: PT OWN MED DRAWER 7, Y5N ONE (21:25)
[2021-07-22] MEDS: ATORVASTATIN CA 80 MG TABLET (FP) PO SCH (21:56)
[2021-07-22] MEDS: PHENYTOIN NA EXTENDED 100 MG CAPSULE (FP) PO SCH (21:56)
[2021-07-22] MEDS: QUEtiapine FUMARATE 200 MG TABLET PO SCH (21:57)
[2021-07-22] MEDS: PHENobarbital 30 MG TABLET PO SCH (21:57)
[2021-07-23] MEDS: GABAPENTIN 400 MG CAPSULE PO PRN (00:20)
[2021-07-23] MEDS: HEPARIN NA (PORCINE) 5,000 UNITS/ML 1ML VIAL SQ SCH ×3 (05:26→22:41)
[2021-07-23] MEDS: LITHIUM CARBONATE 300 MG CAPSULE PO SCH ×3 (05:27→22:42)
[2021-07-23] MEDS: QUEtiapine FUMARATE 50 MG TABLET PO SCH (06:21)
[2021-07-23] MEDS ORDERED: methaDONE HCL 40 MG DISPERSABLE TABLET ONE (08:55)
[2021-07-23] MEDS ORDERED: methaDONE HCL 10 MG TABLET ONE (08:56)
[2021-07-23] MEDS: TIOTROPIUM BROMIDE 2.5 MCG (SPIRIVA) RESPIMAT INHALER IH SCH (11:27)
[2021-07-23] MEDS: NICOTINE 14 MG/24 HOURS TOPICAL PATCH TD SCH (11:27)
[2021-07-23] MEDS: ASPIRIN COATED 81 MG TABLET.EC PO SCH (11:27)
[2021-07-23] MEDS ORDERED: SODIUM CHLORIDE 1,000 ML IV SCH (11:30)
[2021-07-23] MEDS ORDERED: PT OWN MED DRAWER 7, Y5N ONE ×2 (14:32→21:58)
[2021-07-23] MEDS: PHENYTOIN NA EXTENDED 100 MG CAPSULE (FP) PO SCH (22:40)
[2021-07-23] MEDS: QUEtiapine FUMARATE 200 MG TABLET PO SCH (22:42)
[2021-07-23] MEDS: ATORVASTATIN CA 80 MG TABLET (FP) PO SCH (22:42)
[2021-07-23] MEDS: PHENobarbital 30 MG TABLET PO SCH (22:42)
[2021-07-24] MEDS: LITHIUM CARBONATE 300 MG CAPSULE PO SCH ×2 (06:28→14:36)
[2021-07-24] MEDS: HEPARIN NA (PORCINE) 5,000 UNITS/ML 1ML VIAL SQ SCH ×2 (06:28→14:36)
[2021-07-24] MEDS ORDERED: methaDONE HCL 10 MG TABLET ONE (09:51)
[2021-07-24] MEDS ORDERED: methaDONE HCL 40 MG DISPERSABLE TABLET ONE (09:51)
[2021-07-24] MEDS: NICOTINE 14 MG/24 HOURS TOPICAL PATCH TD SCH (09:57)
[2021-07-24] MEDS: TIOTROPIUM BROMIDE 2.5 MCG (SPIRIVA) RESPIMAT INHALER IH SCH (09:57)
[2021-07-24] MEDS: ASPIRIN COATED 81 MG TABLET.EC PO SCH (09:57)
[2021-07-24] MEDS ORDERED: LIDOCAINE 5% TOPICAL PATCH TP SCH (11:15)
[2021-07-24] MEDS ORDERED: SODIUM CHLORIDE 1,000 ML IV SCH ×2 (12:45)
[2021-07-24 15:53] LABS: CALCIUM 9.1 mg/dL (8.5-10.1)
[2021-07-24 15:57] LABS: CREATININE 1.4 mg/dL (0.55-1.3)
[2021-07-24 18:36] VITALS: BP 82/54; PULSE 83; TEMP 98.4
[2021-07-24] MEDS ORDERED: LIDOCAINE PATCH REMOVAL MC SCH (22:00)
[2021-07-25] MEDS ORDERED: QUEtiapine FUMARATE 50 MG TABLET PO SCH (07:00)
== END 2021-07-24 19:17 | disposition home or self-care (01) | DRG 52 ==
LOC: JER 15:48 → JERBED 18:43 → J4W 21:24
PROVIDERS: ADMIT Internal Medicine; ATTEND Internal Medicine
DX: G92.9 Unspecified toxic encephalopathy (principal); N17.9 Acute kidney failure, unspecified; F20.9 Schizophrenia, unspecified; G45.9 Transient cerebral ischemic attack, unspecified; F17.210 Nicotine dependence, cigarettes, uncomplicated; F31.9 Bipolar disorder, unspecified; F39 Unspecified mood [affective] disorder; G40.909 Epilepsy, unspecified, not intractable, without status epilepticus; J44.9 Chronic obstructive pulmonary disease, unspecified; K21.9 Gastro-esophageal reflux disease without esophagitis; N39.0 Urinary tract infection, site not specified; T42.6X5A Adverse effect of other antiepileptic and sedative-hypnotic drugs, initial encounter; Z79.899 Other long term (current) drug therapy; I12.9 Hypertensive chronic kidney disease with stage 1 through stage 4 chronic kidney disease, or unspecified chronic kidney disease; N18.9 Chronic kidney disease, unspecified; G62.9 Polyneuropathy, unspecified; Z91.14 Patient's other noncompliance with medication regimen
CPT/HCPCS: 36415; 70450-TC; 70496-TC; 70498-TC; 70551-TC; 71045-TC-FY; 76775-TC; 80048; 80053; 80061; 80307; 81003; 82550; 82570; 82607; 82962; 83036; 83735; 83930; 83935; 84100; 84300; 84484; 85025; 85027; 85610; 85730; 86780; 86850; 86900; 86901; 87086; 93005; 93010; 93306-TC; 97116-GP; 97161-GP; 99285-25; C9803; J1644; U0003; U0005

== ENCOUNTER 2025-01-18 08:15 | Inpatient (IN) | payer OTHER ==
[2025-01-18] MEDS ORDERED: ACETAMINOPHEN 500 MG TABLET (FP) ONE (09:02)
[2025-01-18] MEDS: ACETAMINOPHEN 500 MG TABLET (FP) PO ONE (09:06)
[2025-01-18] MEDS: CEPHALEXIN MONOHYDRATE 500 MG CAPSULE (UD) PO ONE (12:28)
[2025-01-18 12:39] LABS: ABSOLUTE IMMATURE GRANULOCYTES 0.01 x10^3/uL (0.0-0.031); BASOPHILS # 0.01 x10^3/uL (0.01-0.08); EOSINOPHIL % 0.5 % (0.7-5.8); EOSINOPHILS # 0.02 x10^3/uL (0.04-0.36); HEMATOCRIT 27.5 % (34.1-44.9); HEMOGLOBIN 8.8 g/dL (11.2-15.7); MEAN CELL VOLUME 79.7 fl (79.4-94.8); MEAN PLT VOLUME 9.4 fl (9.4-12.3); MONOCYTE # 0.57 x10^3/uL (0.24-0.86); MONOCYTE % 13.6 % (4.7-12.5); PLATELET COUNT 180 x10^3/uL (182-369); RDW 14.7 % (12.4-16.4)
[2025-01-18 13:04] LABS: CHLORIDE 110 mmol/L (98-107); POTASSIUM 3.7 mmol/L (3.5-5.1); SODIUM 141 mmol/L (136-145)
[2025-01-18 13:06] LABS: ALBUMIN 3.3 g/dl (3.4-5.0); ANION GAP 8 mmol/L (4-13); BLOOD UREA NITROGEN 17.6 mg/dL (7-18); CALCIUM 9.3 mg/dL (8.5-10.1); CO2 23 mmol/L (21-32)
[2025-01-18 13:07] LABS: GLUCOSE,RANDOM 80 mg/dL (74-106)
[2025-01-18 13:10] LABS: CREATININE 1.2 mg/dL (0.55-1.3); SGOT/AST 25 U/L (15-37); SGPT/ALT 19 U/L (13-61)
[2025-01-18 13:11] LABS: BILIRUBIN,TOTAL 0.5 mg/dL (0.2-1); TOT PROT 6.4 g/dl (6.4-8.2)
[2025-01-18 13:12] LABS: ALK PHOS 89 U/L (45-117)
[2025-01-18] MEDS ORDERED: GABAPENTIN 400 MG CAPSULE PO PRN (14:05)
[2025-01-18] MEDS ORDERED: ENOXAPARIN NA (PORCINE) 40 MG/0.4 ML DISP.SYRIN SQ ONE (14:30)
[2025-01-18] MEDS: ENOXAPARIN NA (PORCINE) 40 MG/0.4 ML DISP.SYRIN SQ SCH (14:34)
[2025-01-18 14:49] LABS: COCAINE, UR POSITIVE (NEGATIVE); OPIATES, URI NEGATIVE (NEGATIVE); URINE AMPHETAMINES NEGATIVE (NEGATIVE); URINE BARBITURATES NEGATIVE (NEGATIVE); URINE BENZODIAZEPINES NEGATIVE (NEGATIVE)
[2025-01-18 14:50] LABS: PHENCYCLIDINE,URINE NEGATIVE (NEGATIVE)
[2025-01-18 14:52] LABS: METHADONE, UR POSITIVE (NEGATIVE)
[2025-01-18 17:20] VITALS: BMI 26.3
[2025-01-18] MEDS: ACETAMINOPHEN 1000 MG/100 ML BAG IVPB PRN (20:08)
[2025-01-18] MEDS: methaDONE HCL 10 MG TABLET PO ONE (20:57)
[2025-01-18] MEDS: NICOTINE 7 MG/24 HOURS TOPICAL PATCH TD SCH (21:37)
[2025-01-18] MEDS: PHENobarbital 30 MG TABLET PO SCH (21:55)
[2025-01-18] MEDS: CEPHALEXIN MONOHYDRATE 500 MG CAPSULE (UD) PO SCH (21:55)
[2025-01-18] MEDS: PHENYTOIN 100 MG/4 ML U-D CUP PO SCH (21:56)
[2025-01-18] MEDS: LITHIUM CARBONATE 300 MG CAPSULE PO SCH (21:56)
[2025-01-18] MEDS ORDERED: QUEtiapine FUMARATE 400 MG TABLET PO SCH (22:00)
[2025-01-19] MEDS: IBUPROFEN 400 MG TABLET (FP) PO ONE (00:07)
[2025-01-19] MEDS: BISACODYL 5 MG TABLET.DR (FP) PO ONE (06:45)
[2025-01-19 06:46] LABS: EPI CELLS 6 /uL (0-25.1); HYALINE CASTS 0 /uL (0-3.1); PH,URINE 8.5 (5.0-8.0); URINE APPEARANCE CLOUDY; URINE BILIRUBIN NEGATIVE (NEGATIVE); URINE COLOR YELLOW; URINE GLUCOSE (UA) NEGATIVE (NEGATIVE); URINE KETONE NEGATIVE (NEGATIVE); URINE LEUK ESTERASE TRACE (NEGATIVE); URINE NITRITE POSITIVE (NEGATIVE); URINE PROTEIN 1+ (NEGATIVE); URINE RBC 10 /uL (0-23.9); URINE WBC 73 /uL (0-25.8)
[2025-01-19] MEDS: POLYETHYLENE GLYCOL (HEALTHYLAX) 3350 17 GM PACKET PO SCH (09:25)
[2025-01-19] MEDS: methaDONE HCL 10 MG TABLET PO ONE (11:45)
[2025-01-19 12:09] LABS: URINE BACTERIA 1313 /uL (0-1359)
[2025-01-19] MEDS ORDERED: ACETAMINOPHEN 1000 MG/100 ML BAG IVPB PRN (14:39)
[2025-01-19] MEDS ORDERED: hydrOXYzine PAMOATE 25 MG CAPSULE (FP) PO PRN (15:00)
[2025-01-19] MEDS: LIDOCAINE 5% TOPICAL PATCH TP SCH (16:05)
[2025-01-19] MEDS: CEFTRIAXONE 1 G/50 ML PREMIX 50 ML IVPB SCH (16:22)
[2025-01-19] MEDS: QUEtiapine FUMARATE 200 MG TABLET PO SCH (21:23)
[2025-01-19] MEDS: GABAPENTIN 400 MG CAPSULE PO SCH (21:23)
[2025-01-19] MEDS: LIDOCAINE PATCH REMOVAL MC SCH (21:25)
[2025-01-19] MEDS: SENNOSIDES 8.8 MG/5 ML SYRUP PO SCH (21:40)
[2025-01-20] MEDS ORDERED: methaDONE HCL 10 MG TABLET PO SCH (06:00)
[2025-01-20 15:21] LABS: ABSOLUTE IMMATURE GRANULOCYTES 0.02 x10^3/uL (0.0-0.031); BASOPHILS # 0.01 x10^3/uL (0.01-0.08); EOSINOPHIL % 1.2 % (0.7-5.8); EOSINOPHILS # 0.05 x10^3/uL (0.04-0.36); HEMATOCRIT 34.1 % (34.1-44.9); HEMOGLOBIN 10.7 g/dL (11.2-15.7); MCHC 31.4 g/dl (32.2-35.5); MEAN CELL VOLUME 79.9 fl (79.4-94.8); MEAN PLT VOLUME 9.8 fl (9.4-12.3); MONOCYTE # 0.45 x10^3/uL (0.24-0.86); MONOCYTE % 10.4 % (4.7-12.5); PLATELET COUNT 227 x10^3/uL (182-369); RDW 15.1 % (12.4-16.4)
[2025-01-20] MEDS: CEFTRIAXONE 1 G/50 ML PREMIX 50 ML IVPB SCH (17:13)
[2025-01-20] MEDS: GABAPENTIN 400 MG CAPSULE PO SCH (21:07)
[2025-01-20] MEDS: QUEtiapine FUMARATE 200 MG TABLET PO SCH (21:07)
[2025-01-20] MEDS: GABAPENTIN 300 MG CAPSULE PO SCH (21:27)
[2025-01-20] MEDS: PRAMIPEXOLE DIHYDROCHLORIDE 0.125 MG TABLET PO SCH (21:27)
[2025-01-20] MEDS: PHENYTOIN NA EXTENDED 100 MG CAPSULE (FP) PO SCH (21:27)
[2025-01-20] MEDS: ACETAMINOPHEN 1000 MG/100 ML BAG IVPB ONE (22:17)
[2025-01-20] MEDS: PHENobarbital 30 MG TABLET PO SCH (22:54)
[2025-01-21 12:10] LABS: HEMATOCRIT 32.6 % (34.1-44.9); HEMOGLOBIN 10.1 g/dL (11.2-15.7); MEAN CELL VOLUME 80.7 fl (79.4-94.8); PLATELET COUNT 211 x10^3/uL (182-369); RDW 14.9 % (12.4-16.4)
[2025-01-21 12:42] LABS: POTASSIUM 4.8 mmol/L (3.5-5.1)
[2025-01-21 12:48] LABS: CALCIUM 9.9 mg/dL (8.5-10.1)
[2025-01-21 12:49] LABS: ALBUMIN 3.2 g/dl (3.4-5.0); BLOOD UREA NITROGEN 12.7 mg/dL (7-18)
[2025-01-21 12:52] LABS: CREATININE 1.3 mg/dL (0.55-1.3)
[2025-01-21 12:53] LABS: BILIRUBIN,TOTAL 0.4 mg/dL (0.2-1)
[2025-01-21 12:54] LABS: TOT PROT 6.8 g/dl (6.4-8.2)
[2025-01-21] MEDS: QUEtiapine FUMARATE 200 MG TABLET PO ONE (22:53)
[2025-01-22] MEDS: ACETAMINOPHEN 500 MG TABLET (FP) PO PRN (08:45)
[2025-01-22 10:51] LABS: ABSOLUTE IMMATURE GRANULOCYTES 0.01 x10^3/uL (0.0-0.031); BASOPHILS # 0.02 x10^3/uL (0.01-0.08); EOSINOPHIL % 2.7 % (0.7-5.8); EOSINOPHILS # 0.13 x10^3/uL (0.04-0.36); HEMATOCRIT 31.9 % (34.1-44.9); HEMOGLOBIN 10.1 g/dL (11.2-15.7); MCHC 31.7 g/dl (32.2-35.5); MEAN CELL VOLUME 79.6 fl (79.4-94.8); MONOCYTE # 0.49 x10^3/uL (0.24-0.86); MONOCYTE % 10.3 % (4.7-12.5); PLATELET COUNT 202 x10^3/uL (182-369); RDW 14.9 % (12.4-16.4)
[2025-01-22 11:20] LABS: CALCIUM 9.9 mg/dL (8.5-10.1)
[2025-01-22 11:21] LABS: BLOOD UREA NITROGEN 14.6 mg/dL (7-18)
[2025-01-22 11:24] LABS: CREATININE 1.2 mg/dL (0.55-1.3)
[2025-01-22 11:26] LABS: BILIRUBIN,TOTAL 0.2 mg/dL (0.2-1); TOT PROT 6.6 g/dl (6.4-8.2)
[2025-01-22] MEDS ORDERED: PRAMIPEXOLE DIHYDROCHLORIDE 0.125 MG TABLET PO SCH (21:15)
[2025-01-22] MEDS: PRAMIPEXOLE DIHYDROCHLORIDE 0.25 MG TABLET PO SCH (21:37)
[2025-01-22] MEDS: GABAPENTIN 400 MG CAPSULE PO SCH (21:37)
[2025-01-22] MEDS: guaiFENesin/D-METHORPHAN HB 10 ML UNIT-DOSE CUPS PO PRN (21:38)
[2025-01-23] MEDS: TRIMETHOBENZAMIDE HCL 200MG/2ML INJ IM ONE (11:36)
[2025-01-24] MEDS ORDERED: DOCUSATE SODIUM 100 MG CAPSULE (FP) PO PRN (18:56)
[2025-01-24] MEDS: GABAPENTIN 400 MG CAPSULE PO SCH (21:28)
[2025-01-24] MEDS: PRAMIPEXOLE DIHYDROCHLORIDE 0.25 MG TABLET PO SCH (21:28)
[2025-01-24] MEDS: POLYETHYLENE GLYCOL (HEALTHYLAX) 3350 17 GM PACKET PO SCH (21:29)
[2025-01-25 22:39] VITALS: RESP 18
[2025-01-26 15:39] VITALS: BP 114/55; PULSE 95; TEMP 98
== END 2025-01-26 16:53 | DRG 74 ==
LOC: JER 08:15 → JERBED 12:27 → J6S 15:50 → OBSVTOIN 01-20 14:24
PROVIDERS: ADMIT Internal Medicine; ATTEND Internal Medicine
DX: M54.10 Radiculopathy, site unspecified (principal); L03.90 Cellulitis, unspecified; Z59.01 Sheltered homelessness; F20.9 Schizophrenia, unspecified; G40.909 Epilepsy, unspecified, not intractable, without status epilepticus; J44.9 Chronic obstructive pulmonary disease, unspecified; F31.9 Bipolar disorder, unspecified; F11.90 Opioid use, unspecified, uncomplicated; G25.81 Restless legs syndrome; M17.9 Osteoarthritis of knee, unspecified
CPT/HCPCS: 36415; 72149-TC; 73521-TC-FY; 73562-TC-RT-FY; 73590-TC-LT-FY; 73590-TC-RT-FY; 73610-TC-LT-FY; 73610-TC-RT-FY; 73630-TC-LT; 73630-TC-RT-FY; 80053; 80186; 80307; 81003; 82607; 82728; 82746; 82962; 83540; 83550; 84443; 85025; 85027; 86780; 87040; 87086; 93005; 93010; 93970-TC; 97116-GP; 97162-GP; 99285-25; G0378

== ENCOUNTER 2025-04-03 12:10 | Inpatient (IN) | payer OTHER ==
[2025-04-03 12:37] VITALS: BMI 22.8
[2025-04-03] MEDS ORDERED: NICOTINE POLACRILEX 2 MG LOZENGE BC PRN (18:36)
[2025-04-03] MEDS ORDERED: LOPERAMIDE HCL 2 MG CAPSULE PO PRN (18:36)
[2025-04-03] MEDS ORDERED: guaiFENesin 600 MG TABLET.ER (FP) PO PRN (18:36)
[2025-04-03] MEDS ORDERED: IBUPROFEN 400 MG TABLET (FP) PO PRN (18:36)
[2025-04-03] MEDS ORDERED: METHOCARBAMOL 500 MG TABLET PO PRN (18:36)
[2025-04-03] MEDS ORDERED: BENZOCAINE/MENTHOL (CHLORASEPTIC ) LOZENGE MM PRN (18:36)
[2025-04-03] MEDS ORDERED: BENZONATATE 200 MG CAPSULE PO PRN (18:36)
[2025-04-03] MEDS ORDERED: hydrOXYzine PAMOATE 25 MG CAPSULE (FP) PO PRN (18:36)
[2025-04-03] MEDS ORDERED: NALOXONE (NARCAN) HCL 4 MG/0.1 ML SPRAY NS PRN (18:36)
[2025-04-03] MEDS ORDERED: ONDANSETRON *ODT* 4 MG TABLET SL PRN (18:36)
[2025-04-03] MEDS ORDERED: MAGNESIUM HYDROX 2400MG/30ML ORAL SUSPENSION 30 ML CUP PO PRN (18:36)
[2025-04-03] MEDS ORDERED: MAG HYDROX/AL HYDROX/SIMETH 30 ML UNIT-DOSE CUP PO PRN (18:36)
[2025-04-03] MEDS ORDERED: BISMUTH SUBSALICYLATE 524 MG/30 ML PO PRN (18:36)
[2025-04-03] MEDS ORDERED: ACETAMINOPHEN 325 MG TABLET (FP) PO PRN (18:36)
[2025-04-03] MEDS ORDERED: DICYCLOMINE HCL 10 MG CAPSULE PO PRN (18:36)
[2025-04-03] MEDS ORDERED: POLYETHYLENE GLYCOL (HEALTHYLAX) 3350 17 GM PACKET PO PRN (18:36)
[2025-04-03] MEDS ORDERED: IBUPROFEN 600 MG TABLET (FP) PO PRN (18:36)
[2025-04-03] MEDS: PHENYTOIN NA EXTENDED 100 MG CAPSULE (FP) PO SCH (21:47)
[2025-04-03] MEDS: THIAMINE 100 MG TABLET PO SCH (21:47)
[2025-04-03] MEDS: MELATONIN 5 MG TABLETS PO SCH (21:50)
[2025-04-04] MEDS: PRENATAL VITAMINS W/ FOLIC ACID TABLET (FP) PO SCH (10:30)
[2025-04-04 11:59] LABS: CO2 24 mmol/L (21-32)
[2025-04-04 12:00] LABS: GLUCOSE,RANDOM 85 mg/dL (74-106)
[2025-04-04 12:02] LABS: CREATININE 1.2 mg/dL (0.55-1.3); SGPT/ALT 17 U/L (13-61)
[2025-04-04 12:03] LABS: SGOT/AST 21 U/L (15-37); TOT PROT 7.0 g/dl (6.4-8.2)
[2025-04-04 12:05] LABS: ALK PHOS 132 U/L (45-117)
[2025-04-05 06:09] VITALS: RESP 16
[2025-04-05 09:00] VITALS: BP 120/80; PULSE 81; TEMP 98
== END 2025-04-05 14:35 | disposition home or self-care (01) | DRG 897 ==
LOC: YASAS 12:10 → Y3N 19:30
PROVIDERS: ADMIT Allergy & Immunology; ATTEND Allergy & Immunology
PROC: HZ2ZZZZ Detoxification Services for Substance Abuse Treatment (ICD-10-PCS; principal; 2025-04-03)
DX: F10.230 Alcohol dependence with withdrawal, uncomplicated (principal); F11.23 Opioid dependence with withdrawal; J44.9 Chronic obstructive pulmonary disease, unspecified; F32.A Depression, unspecified; Z86.718 Personal history of other venous thrombosis and embolism
CPT/HCPCS: 36415; 80053; 80307; 93005; 93010

== ENCOUNTER 2025-05-26 19:21 | Emergency (ER) | payer OTHER ==
[2025-05-26 19:32] VITALS: BP 119/87; PULSE 93; RESP 18; TEMP 97.7; BMI 25.8
[2025-05-26] MEDS ORDERED: ACETAMINOPHEN 325 MG TABLET (FP) ONE (21:39)
[2025-05-26] MEDS: ACETAMINOPHEN 325 MG TABLET (FP) PO ONE (21:59)
== END 2025-05-26 23:04 | disposition home or self-care (01) ==
LOC: JER 19:21
DX: M79.604 Pain in right leg (principal); M79.671 Pain in right foot; Z76.5 Malingerer [conscious simulation]
CPT/HCPCS: 99283-25